=== PATIENT | female | born 1960 | race African-American/Black ===

== ENCOUNTER → 2019-02-23 | Outpatient (CLI) | payer MEDICARE, OTHER ==
[2019-02-23 12:17] LABS: Basophils % (A) 1 %; Eosinophils # (A) 0.2 k/uL (0-0.7); Eosinophils % (A) 3 %; HCT 43.2 % (34.0-46.0); HGB 13.2 gm/dL (11.4-16.0); Hypochromasia Slight; Lymphocytes # (A) 2.2 k/uL (1.0-4.8); Lymphocytes % (A) 37 %; MCH 26.7 pg (25.0-35.0); MCHC 30.7 g/dL (31.0-37.0); MCV 87.1 fL (80.0-100.0); Mean Platelet Volume 7.8; Monocytes # (A) 0.4 k/uL (0-1.0); Monocytes % (A) 6 %; Neutrophils % (A) 51 %; Platelet Count 227 k/uL (150-450); RBC 4.96 m/uL (3.80-5.40); RDW 15.2 % (11.5-15.5)
[2019-02-23 16:05] LABS: Albumin 4.6 g/dL (3.80-4.90); Albumin/Globulin Ratio 2.42 (1.60-3.17); Anion Gap 6.6 mmol/L (4.00-12.00); Calcium 9.8 mg/dL (8.7-10.3); Carbon Dioxide 30.4 mmol/L (21.6-31.8); Globulin 1.9 g/dL (1.6-3.3); LDL Cholesterol,Calculated 103.2 mg/dL (0.0-131.0); Potassium 4.5 mmol/L (3.5-5.5); Total Bilirubin 0.8 mg/dL (0.3-1.2); Total Protein 6.5 g/dL (6.2-8.2); VLDL Calculation 21.8 mg/dL (5.00-40.00)
== END | disposition home or self-care (01) ==
LOC: LABWHC1 11:40
PROVIDERS: ATTEND Internal Medicine
DX: Z00.00 Encounter for general adult medical examination without abnormal findings (principal); E55.9 Vitamin D deficiency, unspecified; E11.9 Type 2 diabetes mellitus without complications; I10 Essential (primary) hypertension; F79 Unspecified intellectual disabilities; R60.0 Localized edema
CPT/HCPCS: 36415; 80053; 80061; 82306; 82607; 84443; 85025

== ENCOUNTER → 2019-03-11 | Outpatient (CLI) | payer MEDICARE, OTHER ==
--- NOTE | 2019-03-11 13:04 | USB ---
Reason for exam: clinical finding. Indicated problem(s): pain in both breasts. Physical Findings: Nurse Summary: all soft, nodular, movable (nurse ts). US Breast BILAT Right complete breast ultrasound includes all four quadrants, the retroareolar region and axilla. Finding demonstrates a 0.5 x 0.3 x 0.5cm cystic lesion at 12 o'clock. Left complete breast ultrasound includes all four quadrants, the retroareolar region and axilla. Finding demonstrates a 0.5 x 0.2 x 0.4cm lesion too small to characterize at 6 o'clock, probable cyst cluster, smaller from 2013 and a 0.8 x 0.5 x 0.6cm calcification at 3 o'clock, likely corresponds to calcifications labeled 6 o'clock near the nipple previously. Special needs patient unable to receive mammograms. These results were verbally communicated with the patient and result sheet given to the patient on 03/11/19. ASSESSMENT: Benign, BI-RAD 2 RECOMMENDATION: Continue annual screening as able. Clinical management of both breasts. Continue monthly self breast exams. Manage on a clinical basis with regard to pain. MTDD
== END | disposition home or self-care (01) ==
LOC: RADUSWWP 09:45
PROVIDERS: ATTEND Internal Medicine
DX: N64.4 Mastodynia (principal)

== ENCOUNTER 2019-10-16 18:46 | Emergency (ER) | payer MEDICARE, OTHER ==
[2019-10-16 18:57] VITALS: BP 117/81; PULSE 98; TEMP 101.1
[2019-10-16] MEDS ORDERED: IBUPROFEN 600 MG TAB PO STA (19:15)
[2019-10-16 19:30] VITALS: RESP 20
--- NOTE | 2019-10-16 20:07 | XR ---
EXAMINATION TYPE: XR chest 2V DATE OF EXAM: 10/16/2019 COMPARISON: NONE HISTORY: Fever TECHNIQUE: 2 views FINDINGS: There is no heart failure nor confluent pneumonic infiltrate. Costophrenic angles are clear . There are no hilar masses. Bony thorax is intact. IMPRESSION: No active cardiopulmonary disease. Normal heart.
[2019-10-16] MEDS ORDERED: cefTRIAXone 1,000 MG VIAL (IM USE) IM STA (20:11)
--- NOTE | 2019-10-16 20:11 | ED ---
Fever HPI - General Chief Complaint: Fever Stated Complaint: fever/sore throat Time Seen by Provider: 10/16/19 19:08 Source: patient, family, RN notes reviewed Mode of arrival: ambulatory Limitations: altered mental status, physical limitation - History of Present Illness Initial Comments: 59-year-old female presents to emergency Department chief complaint of fever cough congestion sore throat. Information is slightly limited by patient's developmental delay. Patient is able to say that she has complaints of cough, sore throat and nasal congestion. Patient has been sick for last 2 days. They noticed that she's been more tired than usual she's had no complaints of abdominal pain, nausea vomiting diarrhea constipation no difficulty swallowing. Patient has not had any recent Tylenol Motrin. They are concerned that she may have influenza as she's been exposed bolus and group sessions. - Related Data Home Medications Medication Instructions Recorded Confirmed Atenolol/Chlorthalidone each PO 02/13/14 02/13/14 [Atenolol-Chlorthalidone 100-25] Bisacodyl [Dulcolax] 5 mg PO 02/13/14 02/13/14 PARoxetine HCL [Paxil] 20 mg PO DAILY 02/13/14 02/13/14 Potassium Chloride [Klor-Con 20] 20 meq PO DAILY 02/13/14 02/13/14 Ranitidine HCl 300 mg PO 02/13/14 02/13/14 Simvastatin [Zocor] 20 mg PO HS 02/13/14 02/13/14 metFORMIN HCL 500 mg PO DAILY 02/13/14 02/13/14 Previous Rx's Medication Instructions Recorded methylPREDNISolone Dose Pack 24 mg PO DAILY #1 tab 02/13/14 [Medrol Dose Pack] Amoxicillin/Potassium Clav 1 tab PO Q12HR #20 tab 10/16/19 [Augmentin 875-125 Tablet] Allergies Allergy/AdvReac Type Severity Reaction Status Date / Time No Known Allergies Allergy Verified 10/16/19 18:57 Review of Systems ROS Statement: Those systems with pertinent positive or pertinent negative responses have been documented in the HPI. ROS Other: All systems not noted in ROS Statement are negative. Past Medical History Past Medical History: Diabetes Mellitus, Hypertension Additional Past Medical History / Comment(s): mentally challenged History of Any Multi-Drug Resistant Organisms: None Reported Past Surgical History: Cholecystectomy Additional Past Surgical History / Comment(s): eye Past Psychological History: No Psychological Hx Reported Smoking Status: Never smoker Past Alcohol Use History: None Reported Past Drug Use History: None Reported General Exam Limitations: altered mental status, physical limitation General appearance: alert, in no apparent distress Head exam: Present: atraumatic, normocephalic, normal inspection Eye exam: Present: normal appearance, PERRL, EOMI. Absent: scleral icterus, conjunctival injection, periorbital swelling ENT exam: Present: mucous membranes moist, TM's normal bilaterally, normal external ear exam. Absent: normal oropharynx (Limited Exam by patient though no obvious abscess, there is notable erythema.) Neck exam: Present: normal inspection, full ROM, lymphadenopathy. Absent: tenderness, meningismus Respiratory exam: Present: normal lung sounds bilaterally. Absent: respiratory distress, wheezes, rales, rhonchi, stridor Cardiovascular Exam: Present: regular rate, normal rhythm, normal heart sounds. Absent: systolic murmur, diastolic murmur, rubs, gallop, clicks GI/Abdominal exam: Present: soft, normal bowel sounds. Absent: distended, tenderness, guarding, rebound, rigid Neurological exam: Present: alert Skin exam: Present: warm, dry, intact, normal color. Absent: rash Course Vital Signs 10/16/19 10/16/19 18:54 19:23 Temperature 101.1 F H Pulse Rate 98 Respiratory 22 20 Rate Blood Pressure 117/81 O2 Sat by Pulse 100 Oximetry Medical Decision Making - Medical Decision Making Patient's influenza negative, x-rays unremarkable. Patient will be treated for suspected strep infection at this time. Patient was placed on antibiotics advised to follow-up with PCP tomorrow return for any change in symptoms. - Lab Data Lab Results 10/16/19 Range/Units 19:21 Influenza Type A RNA Not Detected (Not Detectd) Influenza Type B (PCR) Not Detected (Not Detectd) Disposition Clinical Impression: Acute pharyngitis Disposition: HOME SELF-CARE Condition: Stable Instructions (If sedation given, give patient instructions): Fever in Adults (ED) Additional Instructions: Please return to the Emergency Department if symptoms worsen or any other concerns. Prescriptions: Amoxicillin/Potassium Clav [Augmentin 875-125 Tablet] 1 tab PO Q12HR #20 tab Is patient prescribed a controlled substance at d/c from ED?: No Referrals: Joanna Bernal MD [Primary Care Provider] - 1-2 days Time of Disposition: 20:10
== END 2019-10-16 20:57 | disposition home or self-care (01) ==
LOC: EC 18:46 → EEVIPCON 18:46 → EC 20:57
DX: J02.9 Acute pharyngitis, unspecified (principal); R41.82 Altered mental status, unspecified; R05 Cough; R09.81 Nasal congestion; R53.83 Other fatigue; E11.9 Type 2 diabetes mellitus without complications; I10 Essential (primary) hypertension; Z79.84 Long term (current) use of oral hypoglycemic drugs; Z79.899 Other long term (current) drug therapy
CPT/HCPCS: 87502; 71046; 99283; 96372; J0696

== ENCOUNTER → 2020-12-21 | Outpatient (CLI) | payer MEDICARE, OTHER ==
[2020-12-21 19:58] LABS: Chol/HDL Ratio 4.93
== END | disposition home or self-care (01) ==
LOC: LABWHC1 11:40
PROVIDERS: ATTEND Internal Medicine
DX: Z00.00 Encounter for general adult medical examination without abnormal findings (principal); E78.5 Hyperlipidemia, unspecified
CPT/HCPCS: 36415; 80061

== ENCOUNTER → 2020-12-30 | Outpatient (CLI) | payer MEDICARE, OTHER ==
--- NOTE | 2020-12-31 10:50 | ECHOF ---
Referral Reason:E11.9, R60.0, E78.5, I10 MEASUREMENTS -------- HEIGHT: 160.0 cm WEIGHT: 95.3 kg BP: IVSd: 1.0 cm (0.6 - 1.1) LVIDd: 2.9 cm (3.9 - 5.3) LVPWd: 1.2 cm (0.6 - 1.1) EDV(Teich): 32 ml IVSs: 1.5 cm LVIDs: 1.4 cm LVPWs: 1.3 cm %IVS Thck: 51 % ESV(Teich): 5 ml EF(Teich): 85 % %FS: 53 % SV(Teich): 27 ml IVC: 11.74 mm LALs A4C: 4.5 cm LAAs A4C: 12.6 cm LAESV A-L A4C: 30 ml LAESV MOD A4C: 29 ml LALs A2C: 4.6 cm LAAs A2C: 11.7 cm LAESV A-L A2C: 25 ml LAESV MOD A2C: 24 ml LAESV(A-L): 28 ml LAESV Index (A-L): 14.00 ml/m Ao Diam: 2.5 cm (2.0 - 3.7) LA Diam: 2.8 cm (2.7 - 3.8) EPSS: 1.6 cm MV E Lan: 0.74 m/s MV DecT: 177 ms MV Dec Lea: 4.2 m/s MV A Lan: 0.86 m/s MV E/A Ratio: 0.87 MV PHT: 51 ms MR Vmax: 1.44 m/s MR maxP.29 mmHg AV Vmax: 1.35 m/s AV maxP.32 mmHg TR Vmax: 1.37 m/s TR maxP.51 mmHg RAP: 5.00 mmHg RVSP: 12.51 mmHg MV EF SLOPE: 67.17 mm/s (70 - 150) MV EXCURSION: 12.49 mm (> 18.000) FINDINGS -------- This was a technically good study. The left ventricular size is normal. There is borderline concentric left ventricular hypertrophy. Overall left ventricular systolic function is normal with, an EF between 55 - 60 %. The diastolic filling pattern is normal for the age of the patient 11.61. The right ventricle is normal in size. The left atrial size is normal. Normal LA size by volume 22+/-6 ml/m2. The right atrial size is normal. Interatrial and interventricular septum intact. The aortic valve is trileaflet and appears structurally normal. The mitral valve is normal. There is trace mitral regurgitation. The tricuspid valve appears structurally normal. Trace tricuspid regurgitation present. Right jerald tricular systolic pressure is normal at < 35 mmHg. There is no pulmonic regurgitation present. The aortic root size is normal. Normal inferior vena cava with normal inspiratory collapse consistent with estimated right atrial pre ssure of 5 mmHg. There is no pericardial effusion. CONCLUSIONS -------- 1. The left ventricular size is normal. 2. There is borderline concentric left ventricular hypertrophy. 3. Overall left ventricular systolic function is normal with, an EF between 55 - 60 %. 4. The diastolic filling pattern is normal for the age of the patient 11.61 5. There is trace mitral regurgitation. 6. Trace tricuspid regurgitation present. 7. There is no pericardial effusion. VOCATIONAL NURSING INSTRUCTOR: Shantell Spears RDCS
== END | disposition home or self-care (01) ==
LOC: RADECHMAIN 13:09
PROVIDERS: ATTEND Internal Medicine
DX: I08.1 Rheumatic disorders of both mitral and tricuspid valves (principal); I10 Essential (primary) hypertension
CPT/HCPCS: 93306

== ENCOUNTER 2022-01-24 20:09 | Emergency (ER) | payer MEDICARE, OTHER ==
[2022-01-24 20:23] VITALS: RESP 18; TEMP 98.3
--- NOTE | 2022-01-24 21:11 | ED ---
General Adult HPI - General Chief complaint: Extremity Injury, Upper Stated complaint: Left Shoulder Injury Time Seen by Provider: 01/24/22 20:40 Source: patient, family, RN notes reviewed Mode of arrival: ambulatory Limitations: altered mental status - History of Present Illness Initial comments: Patient is a pleasant 61-year-old female presenting to the emergency Department with left shoulder discomfort. Onset of symptoms was a couple of days ago while being days. No direct trauma. Unclear how this could've started. Patient provides extremely limited history with limited verbal response. 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 No history of similar symptoms previously. Discomfort is greatly increased with attempting to raise arms. - Related Data Home Medications Medication Instructions Recorded Confirmed Atenolol/Chlorthalidone each PO 02/13/14 02/13/14 [Atenolol-Chlorthalidone 100-25] Bisacodyl [Dulcolax] 5 mg PO 02/13/14 02/13/14 PARoxetine HCL [Paxil] 20 mg PO DAILY 02/13/14 02/13/14 Potassium Chloride [Klor-Con 20] 20 meq PO DAILY 02/13/14 02/13/14 Simvastatin [Zocor] 20 mg PO HS 02/13/14 02/13/14 metFORMIN HCL 500 mg PO DAILY 02/13/14 02/13/14 raNITIdine HCL [Ranitidine HCl] 300 mg PO 02/13/14 02/13/14 Previous Rx's Medication Instructions Recorded methylPREDNISolone Dose Pack 24 mg PO DAILY #1 tab 02/13/14 [Medrol Dose Pack] Amoxicillin/Potassium Clav 1 tab PO Q12HR #20 tab 10/16/19 [Augmentin 875-125 Tablet] Ibuprofen [Motrin] 600 mg PO Q6HR PRN #20 tab 01/24/22 Allergies Allergy/AdvReac Type Severity Reaction Status Date / Time No Known Allergies Allergy Verified 10/16/19 18:57 Review of Systems ROS Statement: Those systems with pertinent positive or pertinent negative responses have been documented in the HPI. ROS Other: All systems not noted in ROS Statement are negative. Limitations: ROS unobtainable due to patients medical condition Gastrointestinal: Denies: vomiting Skin: Denies: rash Neurological: Denies: weakness Past Medical History Past Medical History: Diabetes Mellitus, Hypertension Additional Past Medical History / Comment(s): mentally challenged History of Any Multi-Drug Resistant Organisms: None Reported Past Surgical History: Cholecystectomy Additional Past Surgical History / Comment(s): eye Past Psychological History: No Psychological Hx Reported Smoking Status: Never smoker Past Alcohol Use History: None Reported Past Drug Use History: None Reported General Exam Limitations: no limitations General appearance: alert, in no apparent distress Head exam: Present: normocephalic Eye exam: Present: normal appearance Neck exam: Present: normal inspection. Absent: tenderness Respiratory exam: Present: normal lung sounds bilaterally Cardiovascular Exam: Present: regular rate, normal rhythm Expanded Peripheral pulses: 2+: Radial (L) GI/Abdominal exam: Present: soft. Absent: tenderness Extremities exam: Present: tenderness (Minimal tenderness left clavicle region and upper arm). Absent: full ROM (Limited ability to raise left arm secondary to discomfort) Back exam: Present: normal inspection. Absent: tenderness Neurological exam: Present: alert. Absent: motor sensory deficit Expanded Motor strength exam: RUE: 5, LUE: 5 Psychiatric exam: Present: normal affect, normal mood Skin exam: Present: normal color Course Vital Signs 01/24/22 01/24/22 01/24/22 20:21 20:56 21:29 Temperature 98.3 F Pulse Rate 86 73 Respiratory 18 18 Rate Blood Pressure 182/137 187/115 142/91 O2 Sat by Pulse 98 Oximetry - Reevaluation(s) Reevaluation #1: 01/24/22 21:11 Patient reportedly did not take her evening blood pressure medicine. [employer] Exp[employer] Maker Hand is trying to figure out what that medication is 01/24/22 21:19 Patient is supposed to be on metoprolol 25 twice a day over this is reportedly was witnessed. Medical Decision Making - Medical Decision Making Patient reevaluated and resting comfortably in bed. Discomfort appears only to be apparent with movement of the arm. [employer] updated on results and need for follow-up. - Radiology Data Radiology results: image reviewed (Chest x-ray, humerus x-ray, and clavicle x- ray revealed no acute abnormality) Disposition Clinical Impression: Strain of shoulder Disposition: HOME SELF-CARE Condition: Stable Instructions (If sedation given, give patient instructions): Shoulder Sprain (ED) Additional Instructions: Please do follow-up with primary care physician this week. If symptoms continue consider orthopedic follow-up, number provided. Prescription for Motrin 600 has been sent to pharmacy. Return for fever, increased pain, swelling, worsening or change in symptoms or any other concerns. Prescriptions: Ibuprofen [Motrin] 600 mg PO Q6HR PRN #20 tab PRN Reason: Pain Is patient prescribed a controlled substance at d/c from ED?: No Referrals: Joanna Bernal MD [Primary Care Provider] - 1-2 days David Fan MD [Medical Doctor] - 1-2 days Time of Disposition: 22:07
[2022-01-24] MEDS ORDERED: METOPROLOL TARTRATE 25 MG TAB PO STA (21:19)
[2022-01-24 21:29] VITALS: BP 142/91; PULSE 73
--- NOTE | 2022-01-24 21:37 | XR ---
EXAMINATION TYPE: XR clavicle LT DATE OF EXAM: 01/24/2022 9:20 PM INDICATION: Patient age:Female; 61 years old; Reason for study: pain; COMPARISON: Chest radiograph same day TECHNIQUE: AP and cephalic tilt views were obtained of the left clavicle. FINDINGS: No evidence of acute or chronic osseous pathology, joint dislocation or soft tissue swelling. IMPRESSION: No evidence for acute fracture.
--- NOTE | 2022-01-24 21:37 | XR ---
EXAMINATION TYPE: XR humerus LT DATE OF EXAM: 01/24/2022 9:20 PM INDICATION: Patient age:Female; 61 years old; Reason for study: pain; COMPARISON: Radiograph same day TECHNIQUE: The left humerus was examined in AP, internally rotated and axillary projections. FINDINGS: No evidence of acute osseous pathology, joint dislocation, or soft tissue swelling. The rem aining portions of the visualized chest are unremarkable. IMPRESSION: No acute osseous pathology.
--- NOTE | 2022-01-24 21:37 | XR ---
EXAMINATION TYPE: XR chest 2V DATE OF EXAM: 01/24/2022 9:20 PM COMPARISON: Multiple radiographs, with the most recent on 01/24/2022 TECHNIQUE: XR chest 2V Frontal and lateral views of the chest. CLINICAL INDICATION:Female, 61 years old with history of pain; FINDINGS: Lungs/Pleura: There is no evidence of pleural effusion, focal consolidation, or pneumothorax. Pulmonary vascularity: Unremarkable. Heart/mediastinum: Cardiomediastinal silhouette is unremarkable. Musculoskeletal: No acute osseous pathology. IMPRESSION: No acute cardiopulmonary disease/process.
== END 2022-01-24 22:20 | disposition home or self-care (01) ==
LOC: EC 20:09
DX: S46.912A Strain of unspecified muscle, fascia and tendon at shoulder and upper arm level, left arm, initial encounter (principal); I10 Essential (primary) hypertension; E11.9 Type 2 diabetes mellitus without complications; W19.XXXA Unspecified fall, initial encounter
CPT/HCPCS: 71046; 99284

== ENCOUNTER 2022-02-01 21:48 | Emergency (ER) | payer MEDICARE, OTHER ==
--- NOTE | 2022-02-01 23:39 | XR ---
EXAMINATION TYPE: XR chest 2V DATE OF EXAM: 02/01/2022 COMPARISON: 01/24/2022 HISTORY: Short of breath TECHNIQUE: 2 views FINDINGS: Heart is normal. Lungs are clear of infiltrate. No heart failure. There are no hilar masses . Bony thorax is intact. IMPRESSION: No active cardiopulmonary disease. No change.
[2022-02-02] MEDS ORDERED: ACETAMINOPHEN TAB 500 MG TAB PO STA (00:30)
[2022-02-02] MEDS ORDERED: DEXAMETHASONE SOD PHOSPHATE 10 MG/ML 1 ML VIAL IVP STA (00:30)
[2022-02-02] MEDS ORDERED: ALBUTEROL HFA INHALER INHALATION STA (00:30)
[2022-02-02] MEDS ORDERED: KETOROLAC 15 MG/ML 1 ML VIAL IVP STA (00:30)
--- NOTE | 2022-02-02 00:32 | ED ---
Fever HPI - General Chief Complaint: Fever Stated Complaint: Fever,RITIKA,Weakness Time Seen by Provider: 02/02/22 00:21 Source: patient, family, RN notes reviewed, old records reviewed, Caregiver Mode of arrival: wheelchair Limitations: language barrier, altered mental status, physical limitation - History of Present Illness Initial Comments: This is a 61-year-old female who is relatively healthy presented with family today. Family brings patient in urgent of primary care for evaluation regards to fever. Patient is unable to provide history, does not presented history of present illness and she is unable to speak or communicate. She does have elva betes and high blood pressure. No travel history or sick contacts persistent fever but no other complaints MD Complaint: fever, weakness -: days(s) Temperature Source: subjective Context: sick contacts, multiple patients with similar symptoms Associated Symptoms: chills, myalgias Treatments Prior to Arrival: none - Related Data Home Medications Medication Instructions Recorded Confirmed Atenolol/Chlorthalidone each PO 02/13/14 02/13/14 [Atenolol-Chlorthalidone 100-25] Bisacodyl [Dulcolax] 5 mg PO 02/13/14 02/13/14 PARoxetine HCL [Paxil] 20 mg PO DAILY 02/13/14 02/13/14 Potassium Chloride [Klor-Con 20] 20 meq PO DAILY 02/13/14 02/13/14 Simvastatin [Zocor] 20 mg PO HS 02/13/14 02/13/14 metFORMIN HCL 500 mg PO DAILY 02/13/14 02/13/14 raNITIdine HCL [Ranitidine HCl] 300 mg PO 02/13/14 02/13/14 Previous Rx's Medication Instructions Recorded methylPREDNISolone Dose Pack 24 mg PO DAILY #1 tab 02/13/14 [Medrol Dose Pack] Amoxicillin/Potassium Clav 1 tab PO Q12HR #20 tab 10/16/19 [Augmentin 875-125 Tablet] Ibuprofen [Motrin] 600 mg PO Q6HR PRN #20 tab 01/24/22 Allergies Allergy/AdvReac Type Severity Reaction Status Date / Time No Known Allergies Allergy Verified 02/01/22 23:17 Review of Systems ROS Statement: Those systems with pertinent positive or pertinent negative responses have been documented in the HPI. ROS Other: All systems not noted in ROS Statement are negative. Past Medical History Past Medical History: Diabetes Mellitus, Hypertension Additional Past Medical History / Comment(s): mentally challenged, nonverbal History of Any Multi-Drug Resistant Organisms: None Reported Past Surgical History: Cholecystectomy Additional Past Surgical History / Comment(s): eye Past Psychological History: No Psychological Hx Reported Smoking Status: Never smoker Past Alcohol Use History: None Reported Past Drug Use History: None Reported General Exam Limitations: language barrier, altered mental status, physical limitation General appearance: alert, in no apparent distress Head exam: Present: atraumatic, normocephalic, normal inspection Eye exam: Present: normal appearance, PERRL, EOMI. Absent: scleral icterus, conjunctival injection, periorbital swelling ENT exam: Present: normal exam, mucous membranes moist Neck exam: Present: normal inspection. Absent: tenderness, meningismus, lymphadenopathy Respiratory exam: Present: normal lung sounds bilaterally. Absent: respiratory distress, wheezes, rales, rhonchi, stridor Cardiovascular Exam: Present: regular rate, normal rhythm, normal heart sounds. Absent: systolic murmur, diastolic murmur, rubs, gallop, clicks GI/Abdominal exam: Present: soft, normal bowel sounds. Absent: distended, tenderness, guarding, rebound, rigid Extremities exam: Present: normal inspection, full ROM, normal capillary refill. Absent: tenderness, pedal edema, joint swelling, calf tenderness Back exam: Present: normal inspection Neurological exam: Present: alert, oriented X3, CN II-XII intact Psychiatric exam: Present: normal affect, normal mood Skin exam: Present: warm, dry, intact, normal color. Absent: rash Course Vital Signs 02/01/22 02/02/22 02/02/22 23:11 00:27 01:00 Temperature 99.5 F Pulse Rate 76 70 70 Respiratory 18 20 18 Rate Blood Pressure 155/89 154/90 156/89 O2 Sat by Pulse 98 99 98 Oximetry - Reevaluation(s) Reevaluation #1: 02/02/22 00:31 Medical record is reviewed Reevaluation #2: 02/02/22 02:09 Patient showing no acute distress here in the ER Reevaluation #3: 02/02/22 02:09 Family informed of results and questions answered Medical Decision Making - Medical Decision Making 61 female who is nonverbal coming in for coronavirus with fever. Patient's in no distress vital signs are normal and stable x-rays negative lab values are n ormal. Patient can be discharged home she did get anti-bodies here in the ER - Lab Data Result diagrams: 02/02/22 00:51 02/02/22 00:51 Lab Results 02/01/22 02/01/22 02/02/22 Range/Units 23:21 23:21 00:51 WBC 9.7 (3.8-10.6) k/uL RBC 4.85 (3.80-5.40) m/uL Hgb 13.2 (11.4-16.0) gm/dL Hct 43.7 (34.0-46.0) % MCV 90.2 (80.0-100.0) fL MCH 27.2 (25.0-35.0) pg MCHC 30.2 L (31.0-37.0) g/dL RDW 14.2 (11.5-15.5) % Plt Count 229 (150-450) k/uL MPV 8.5 Neutrophils % 60 % Lymphocytes % 22 % Monocytes % 15 % Eosinophils % 0 % Basophils % 0 % Neutrophils # 5.9 (1.3-7.7) k/uL Lymphocytes # 2.1 (1.0-4.8) k/uL Monocytes # 1.4 H (0-1.0) k/uL Eosinophils # 0.0 (0-0.7) k/uL Basophils # 0.0 (0-0.2) k/uL Hypochromasia Slight Sodium (137-145) mmol/L Potassium (3.5-5.1) mmol/L Chloride (98-107) mmol/L Carbon Dioxide (22-30) mmol/L Anion Gap mmol/L BUN (7-17) mg/dL Creatinine (0.52-1.04) mg/dL Est GFR (CKD-EPI)AfAm (>60 ml/min/1.73 sqM) Est GFR (CKD-EPI)NonAf (>60 ml/min/1.73 sqM) Glucose (74-99) mg/dL Calcium (8.4-10.2) mg/dL Phosphorus (2.5-4.5) mg/dL Magnesium (1.6-2.3) mg/dL Total Bilirubin (0.2-1.3) mg/dL AST (14-36) U/L ALT (4-34) U/L Alkaline Phosphatase (38-126) U/L C-Reactive Protein (<1.0) mg/dL Total Protein (6.3-8.2) g/dL Albumin (3.5-5.0) g/dL Coronavirus (PCR) Detected A (Not Detectd) Influenza Type A RNA Not Detected (Not Detectd) Influenza Type B (PCR) Not Detected (Not Detectd) 02/02/22 Range/Units 00:51 WBC (3.8-10.6) k/uL RBC (3.80-5.40) m/uL Hgb (11.4-16.0) gm/dL Hct (34.0-46.0) % MCV (80.0-100.0) fL MCH (25.0-35.0) pg MCHC (31.0-37.0) g/dL RDW (11.5-15.5) % Plt Count (150-450) k/uL MPV Neutrophils % % Lymphocytes % % Monocytes % % Eosinophils % % Basophils % % Neutrophils # (1.3-7.7) k/uL Lymphocytes # (1.0-4.8) k/uL Monocytes # (0-1.0) k/uL Eosinophils # (0-0.7) k/uL Basophils # (0-0.2) k/uL Hypochromasia Sodium 140 (137-145) mmol/L Potassium 4.4 (3.5-5.1) mmol/L Chloride 102 (98-107) mmol/L Carbon Dioxide 29 (22-30) mmol/L Anion Gap 9 mmol/L BUN 21 H (7-17) mg/dL Creatinine 0.92 (0.52-1.04) mg/dL Est GFR (CKD-EPI)AfAm 78 (>60 ml/min/1.73 sqM) Est GFR (CKD-EPI)NonAf 68 (>60 ml/min/1.73 sqM) Glucose 120 H (74-99) mg/dL Calcium 9.1 (8.4-10.2) mg/dL Phosphorus 4.2 (2.5-4.5) mg/dL Magnesium 2.1 (1.6-2.3) mg/dL Total Bilirubin 0.7 (0.2-1.3) mg/dL AST 23 (14-36) U/L ALT 18 (4-34) U/L Alkaline Phosphatase 96 (38-126) U/L C-Reactive Protein 3.6 H (<1.0) mg/dL Total Protein 7.3 (6.3-8.2) g/dL Albumin 4.4 (3.5-5.0) g/dL Coronavirus (PCR) (Not Detectd) Influenza Type A RNA (Not Detectd) Influenza Type B (PCR) (Not Detectd) - Radiology Data Radiology results: report reviewed (Chest x-rays negative for acute disease), image reviewed Disposition Clinical Impression: Coronavirus infection, Fever Disposition: HOME SELF-CARE Condition: Good Instructions (If sedation given, give patient instructions): Fever in Adults (ED), Coronavirus Disease 2019 (COVID-19) Is patient prescribed a controlled substance at d/c from ED?: No Referrals: Joanna Bernal MD [Primary Care Provider] - 1-2 days
[2022-02-02 01:07] LABS: Basophils % (A) 0 %; Eosinophils % (A) 0 %; HCT 43.7 % (34.0-46.0); HGB 13.2 gm/dL (11.4-16.0); Hypochromasia Slight; Lymphocytes # (A) 2.1 k/uL (1.0-4.8); Lymphocytes % (A) 22 %; MCH 27.2 pg (25.0-35.0); MCHC 30.2 g/dL (31.0-37.0); MCV 90.2 fL (80.0-100.0); Mean Platelet Volume 8.5; Monocytes # (A) 1.4 k/uL (0-1.0); Monocytes % (A) 15 %; Neutrophils # (A) 5.9 k/uL (1.3-7.7); Neutrophils % (A) 60 %; Platelet Count 229 k/uL (150-450); RBC 4.85 m/uL (3.80-5.40); RDW 14.2 % (11.5-15.5); WBC 9.7 k/uL (3.8-10.6)
[2022-02-02 01:13] LABS: Albumin 4.4 g/dL (3.5-5.0); C Reactive Protein 3.6 mg/dL (<1.0); Calcium 9.1 mg/dL (8.4-10.2); Magnesium 2.1 mg/dL (1.6-2.3); Phosphorus 4.2 mg/dL (2.5-4.5); Potassium 4.4 mmol/L (3.5-5.1); Total Bilirubin 0.7 mg/dL (0.2-1.3); Total Protein 7.3 g/dL (6.3-8.2)
[2022-02-02] MEDS ORDERED: BEBTELOVIMAB (EUA) 175 MG/2 ML VIAL IV ONE (01:30)
[2022-02-02 01:36] VITALS: RESP 18
[2022-02-02 02:37] VITALS: BP 134/76; PULSE 68; TEMP 98.5
== END 2022-02-02 03:21 | disposition home or self-care (01) ==
LOC: EC 21:48
DX: B34.2 Coronavirus infection, unspecified (principal); I10 Essential (primary) hypertension; E11.9 Type 2 diabetes mellitus without complications
CPT/HCPCS: 36415; 71046; 80053; 83735; 84100; 85025; 86140; 87502; 87635; 96374; 96375; 99285

== ENCOUNTER → 2023-02-10 | Outpatient (CLI) | payer MEDICARE, OTHER ==
[2023-02-11 05:48] LABS: Appearance,Urine Turbid (Clear); Bacteria,Urine 3+ /HPF (None Seen); Bilirubin,Urine Negative (Negative); Blood,Urine Negative (Negative); Color,Urine Yellow (Yellow); Ketones,Urine Trace mg/dL (Negative); Nitrite,Urine Negative (Negative); PH, Urine 5.5 (5.0-8.0); Specific Gravity,Urine 1.034 (1.001-1.030)
== END | disposition home or self-care (01) ==
LOC: LABWHC1 15:20
PROVIDERS: ATTEND Internal Medicine
DX: N39.0 Urinary tract infection, site not specified (principal)
CPT/HCPCS: 81001; 87086

== ENCOUNTER → 2023-09-20 | Outpatient (CLI) | payer MEDICARE, OTHER ==
--- NOTE | 2023-09-21 10:11 | CA ---
Transthoracic Echo Report Name: Queen Ruiz Age: 62 Gender: F : 1960 Exam Date: 09/20/2023 14:16 Exam Location: [place] [facility] Ht (in): 63 Wt (lb): 210 Ordering Physician: Joanna Bernal MD Attending/Referring Phys: Prom Burn Off Operator Karen Morrow [facility] Procedure CPT: Indications: R01.1 CARDIAC MURMUR; R60.0 Edema Cardiac Hx: Technical Quality: Fair Contrast 1: Total Dose (mL): Contrast 2: Total Dose (mL): MEASUREMENTS (Male / Female) Normal Values 2D ECHO LV Diastolic Diameter PLAX 3.3 cm 4.2 - 5.9 / 3.9 - 5.3 cm LV Systolic Diameter PLAX 2.5 cm IVS Diastolic Thickness 1.2 cm 0.6 - 1.0 / 0.6 - 0.9 cm LVPW Diastolic Thickness 1.1 cm 0.6 - 1.0 / 0.6 - 0.9 cm LV Relative Wall Thickness 0.7 LVOT Diameter 2.0 cm M-MODE Aortic Root Diameter MM 2.4 cm LA Systolic Diameter MM 2.6 cm LA Ao Ratio MM 1.1 AV Cusp Separation MM 1.7 cm DOPPLER AV Peak Velocity 111.1 cm/s AV Peak Gradient 4.9 mmHg AV Mean Velocity 82.3 cm/s AV Mean Gradient 3.0 mmHg AV Velocity Time Integral 23.5 cm LVOT Peak Velocity 111.8 cm/s LVOT Peak Gradient 5.0 mmHg LVOT Velocity Time Integral 23.7 cm LVOT Stroke Volume 71.9 cm??? LVOT Stroke Volume Index 36.4 ml/m??? LVOT Cardiac Index 2051.7 cm???/min???m??? AV Area Cont Eq vti 3.1 cm??? AV Area Cont Eq pk 3.1 cm??? Mitral E Point Velocity 61.9 cm/s Mitral A Point Velocity 76.2 cm/s Mitral E to A Ratio 0.8 MV Deceleration Time 223.6 ms LV E' Lateral Velocity 7.2 cm/s Mitral E to LV E' Lateral Ratio 8.6 LV E' Septal Velocity 7.0 cm/s Mitral E to LV E' Septal Ratio 8.8 TR Peak Velocity 205.2 cm/s TR Peak Gradient 16.8 mmHg Right Atrial Pressure 3.0 mmHg Pulmonary Artery Systolic Pressu 19.8 mmHg Right Ventricular Systolic Press 19.8 mmHg FINDINGS Left Ventricle Mildly increased left ventricular wall thickness. Small left ventricular cavity. Low normal left ventricular systolic function with no obvious regional wall motion abnormalities. Left ventricular ejection fraction is estimated at 50-55%. Right Ventricle Normal right ventricular size. Right Atrium Normal right atrial size. Left Atrium Normal left atrial size. Mitral Valve Structurally normal mitral valve. Trace mitral regurgitation. Aortic Valve Trileaflet aortic valve. No aortic valve stenosis or regurgitation. Tricuspid Valve Structurally normal tricuspid valve. Trace tricuspid regurgitation. Pulmonic Valve Pulmonic valve not well visualized. Pericardium No pericardial effusion. Aorta Normal size aortic root and proximal ascending aorta. CONCLUSIONS Left ventricular ejection fraction 50-55% Trace mitral regurgitation Trace tricuspid regurgitation No pericardial effusion Previewed by: Dr. Tonny Schaffer DO (Electronically Signed) Final Date: 21 September 2023 10:10
== END | disposition home or self-care (01) ==
LOC: RADECHMAIN 13:40
PROVIDERS: ATTEND Internal Medicine
DX: I08.1 Rheumatic disorders of both mitral and tricuspid valves (principal); R01.1 Cardiac murmur, unspecified; R60.0 Localized edema
CPT/HCPCS: 93306

== ENCOUNTER → 2024-01-19 | Outpatient (CLI) | payer MEDICARE, OTHER ==
[2024-01-19 15:49] LABS: Chol/HDL Ratio 2.31 Ratio; LDL Cholesterol,Calculated 84.9 mg/dL (0.0-131.0)
== END | disposition home or self-care (01) ==
LOC: LABWHC1 09:01
PROVIDERS: ATTEND Internal Medicine
DX: E78.5 Hyperlipidemia, unspecified (principal)
CPT/HCPCS: 36415; 80061

== ENCOUNTER → 2024-02-22 | Outpatient (CLI) | payer MEDICARE, OTHER ==
--- NOTE | 2024-02-22 15:54 | US ---
EXAMINATION TYPE: US venous doppler duplex LE DATE OF EXAM: 02/22/2024 3:37 PM COMPARISON: US 2011 CLINICAL INDICATION: Female, 63 years old with history of R60.0 localized edema (legs); Left leg swel ling SIDE PERFORMED: Bilateral TECHNIQUE: The lower extremity deep venous system is examined utilizing real time linear array sonog finn with graded compression, doppler sonography and color-flow sonography. VESSELS IMAGED: Common Femoral Vein Deep Femoral Vein Greater Saphenous Vein * Femoral Vein Popliteal Vein Small Saphenous Vein * Proximal Calf Veins (* superficial vessels) Right Leg: Appears negative for DVT Left Leg: Appears negative for DVT IMPRESSION: 1. Bilateral lower extremity ultrasound negative for deep venous thrombosis.
--- NOTE | 2024-02-22 22:44 | XR ---
EXAMINATION TYPE: XR chest 2V DATE OF EXAM: 02/22/2024 COMPARISON: 02/01/2022 INDICATION: Leg swelling TECHNIQUE: Frontal and lateral views of the chest are obtained. FINDINGS: The heart size is normal. The pulmonary vasculature is normal. The lungs are clear. IMPRESSION: 1. No acute pulmonary process.
== END | disposition home or self-care (01) ==
LOC: RADUSWWP 15:07
PROVIDERS: ATTEND Internal Medicine
DX: R60.0 Localized edema (principal); R06.02 Shortness of breath
CPT/HCPCS: 71046; 93970

== ENCOUNTER → 2024-03-14 | Outpatient (CLI) | payer MEDICARE, OTHER ==
--- NOTE | 2024-03-15 11:44 | CA ---
Transthoracic Echo Report Name: Queen Ruiz Age: 63 Gender: F : 1960 Exam Date: 03/14/2024 15:49 Exam Location: [place] [facility] Ht (in): 64 Wt (lb): 210 Ordering Physician: Joanna Bernal MD Attending/Referring Phys: Shake Out Worker Kalie Sauer RDCS Procedure CPT: Indications: R60.0 LOCALIZED EDEMA (legs) Cardiac Hx: Technical Quality: Contrast 1: Total Dose (mL): Contrast 2: Total Dose (mL): MEASUREMENTS (Male / Female) Normal Values 2D ECHO LV Diastolic Diameter PLAX 3.5 cm 4.2 - 5.9 / 3.9 - 5.3 cm LV Systolic Diameter PLAX 2.2 cm IVS Diastolic Thickness 1.1 cm 0.6 - 1.0 / 0.6 - 0.9 cm LVPW Diastolic Thickness 1.0 cm 0.6 - 1.0 / 0.6 - 0.9 cm LV Relative Wall Thickness 0.6 RV Internal Dim ED PLAX 2.7 cm LA Systolic Diameter LX 2.9 cm 3.0 - 4.0 / 2.7 - 3.8 cm LV Diastolic Volume MOD 4C 60.8 cm??? LV Systolic Volume MOD 4C 25.4 cm??? LV Ejection Fraction MOD 4C 58.2 % LV Diastolic Length 4C 6.9 cm LV Systolic Length 4C 5.6 cm LV Diastolic Volume MOD 2C 47.8 cm??? LV Systolic Volume MOD 2C 21.9 cm??? LV Ejection Fraction MOD 2C 54.3 % LV Diastolic Length 2C 6.5 cm LV Systolic Length 2C 5.4 cm M-MODE Aortic Root Diameter MM 2.5 cm LA Systolic Diameter MM 1.7 cm LA Ao Ratio MM 0.7 DOPPLER AV Peak Velocity 153.4 cm/s AV Peak Gradient 9.4 mmHg Mitral E Point Velocity 92.8 cm/s Mitral A Point Velocity 108.5 cm/s Mitral E to A Ratio 0.9 MV Deceleration Time 212.5 ms MV E' Velocity 7.9 cm/s Mitral E to MV E' Ratio 11.8 FINDINGS Left Ventricle Left ventricular ejection fraction is estimated at 65-70%. Small left ventricular cavity. Mildly increased septal wall thickness. Mildly increased posterior wall thickness. Normal left ventricular wall motion. Right Ventricle Normal right ventricular size and function. Unable to estimate the right ventricular systolic pressure. Right Atrium Normal right atrial size. No right atrial thrombus or mass seen. Left Atrium Normal left atrial size. No left atrial thrombus or mass present. Mitral Valve Structurally normal mitral valve. No mitral stenosis, regurgitation or prolapse. Aortic Valve Trileaflet aortic valve. No aortic valve stenosis or regurgitation. Tricuspid Valve Structurally normal tricuspid valve. No tricuspid stenosis, regurgitation or prolapse. Pulmonic Valve Structurally normal pulmonic valve. No pulmonic regurgitation. Pericardium No pericardial effusion. Aorta Normal size aortic root and proximal ascending aorta. CONCLUSIONS Hyperdynamic LV with EF between 65 to 70% Previewed by: Dr. Jameel Crenshaw MD (Electronically Signed) Final Date: 15 March 2024 11:44
== END | disposition home or self-care (01) ==
LOC: RADECHMAIN 15:42
PROVIDERS: ATTEND Internal Medicine
DX: R60.0 Localized edema (principal)
CPT/HCPCS: 93306

== ENCOUNTER 2024-03-19 11:51 | Day surgery (SDC) | payer MEDICARE, OTHER ==
[2024-03-18 11:14] VITALS: BMI 32.1
[~2024-03-19 11:51] MED LIST: LIDOCAINE 1% (10MG/ML) FOR IV START INTRADERMA PRN
[2024-03-19] MEDS: IV FLUID CONTINUATION 1,000 ML IV ONE (12:29)
[2024-03-19 12:37] VITALS: TEMP 97.7
[2024-03-19 12:46] LABS: Glucose,Whole Blood 111 mg/dL (70-110)
[2024-03-19] MEDS: HYDROCORTISONE SUCCINATE 100 MG/2 ML VIAL IV STA (12:48)
[2024-03-19] MEDS: LACTATED RINGERS 1,000 ML IV SCH (12:49)
[2024-03-19] MEDS ORDERED: PROPOFOL 10 MG/ML 20 ML VIAL IV ONE (12:53)
--- NOTE | 2024-03-19 13:06 | P.GSHP ---
History of Present Illness H&P Date: 03/19/24 Chief Complaint: Rectal bleeding 63-year-old female here for colonoscopy. She has not had one previously that I am aware of. She is learning disabled. History obtained from the chart. Patient with some recent rectal bleeding. Past Medical History Past Medical History: Diabetes Mellitus, GERD/Reflux, Hyperlipidemia, Hypertension Additional Past Medical History / Comment(s): Vaginal bleeding recently. Men tally challenged, nonverbal. Swelling in ankles. History of Any Multi-Drug Resistant Organisms: None Reported Past Surgical History: Cholecystectomy Additional Past Surgical History / Comment(s): Eye surgery. Past Anesthesia/Blood Transfusion Reactions: No Reported Reaction Smoking Status: Never smoker - Past Family History Mother Family Medical History: No Reported History Medications and Allergies Home Medications Medication Instructions Recorded Confirmed Type Atenolol/Chlorthalidone each PO 02/13/14 02/13/14 History [Atenolol-Chlorthalidone 100-25] Bisacodyl [Dulcolax] 5 mg PO 02/13/14 02/13/14 History PARoxetine HCL [Paxil] 20 mg PO DAILY 02/13/14 02/13/14 History Potassium Chloride [Klor-Con 20] 20 meq PO DAILY 02/13/14 02/13/14 History Simvastatin [Zocor] 20 mg PO HS 02/13/14 02/13/14 History metFORMIN HCL 500 mg PO DAILY 02/13/14 02/13/14 History methylPREDNISolone Dose Pack 24 mg PO DAILY #1 tab 02/13/14 Rx [Medrol Dose Pack] raNITIdine HCL [Ranitidine HCl] 300 mg PO 02/13/14 02/13/14 History Amoxicillin/Potassium Clav 1 tab PO Q12HR #20 tab 10/16/19 Rx [Augmentin 875-125 Tablet] Ibuprofen [Motrin] 600 mg PO Q6HR PRN #20 tab 01/24/22 Rx Allergies Allergy/AdvReac Type Severity Reaction Status Date / Time No Known Allergies Allergy Verified 03/18/24 11:19 Surgical - Exam Vital Signs Temp Pulse Resp BP Pulse Ox 97.7 F 85 16 183/80 99 03/19/24 12:34 03/19/24 12:34 03/19/24 12:34 03/19/24 12:34 03/19/24 12:34 Physical exam: General: Well-developed, well-nourished HEENT: Normocephalic, sclerae nonicteric Abdomen: Nontender, nondistended Extremities: No edema Neuro: Alert and oriented Results - Labs Abnormal Lab Results - Last 24 Hours (Table) 03/19/24 Range/Units 12:44 POC Glucose (mg/dL) 111 H (70-110) mg/dL Assessment and Plan (1) Rectal bleeding Narrative/Plan: Will proceed with colonoscopy at this time. Current Visit: Yes Status: Acute Code(s): K62.5 - HEMORRHAGE OF ANUS AND RECTUM SNOMED Code(s): 97895876
--- NOTE | 2024-03-19 13:16 | P.PCN ---
Date of Procedure: 03/19/24 Procedure(s) Performed: PREOPERATIVE DIAGNOSIS: Rectal bleeding POSTOPERATIVE DIAGNOSIS: Normal exam PROCEDURE: Colonoscopy ANESTHESIA: MAC SURGEON: Christo Man M.D. SPECIMENS: None ENDOSCOPIC PROCEDURE: The patient was placed on the endoscopy table in the left decubitus position. The Olympus colonoscope was inserted into the anus and passed under direct visualization to the base of the cecum. The appendiceal orifice was visualized. From that point the scope was slowly withdrawn inspecting all surfaces carefully. There were no neoplastic inflammatory or polypoid lesions throughout the cecum, ascending, transverse, descending, sigmoid and rectum. There was no visible diverticulosis noted. The patient's prep was slightly suboptimal. Digital rectal examination was normal. The patient was taken to the recovery room in stable condition per anesthesia guidelines. RECOMMENDATIONS: Resume diet. Follow-up colonoscopy 10 years.
[2024-03-19 13:49] VITALS: BP 117/79; PULSE 82; RESP 16
== END 2024-03-19 14:04 | disposition home or self-care (01) ==
LOC: ORWHC2ENDO 11:51
PROVIDERS: ATTEND Surgery
DX: K62.5 Hemorrhage of anus and rectum (principal); E11.69 Type 2 diabetes mellitus with other specified complication; E78.5 Hyperlipidemia, unspecified; I10 Essential (primary) hypertension; K21.9 Gastro-esophageal reflux disease without esophagitis; F32.A Depression, unspecified; Z79.84 Long term (current) use of oral hypoglycemic drugs; Z79.899 Other long term (current) drug therapy
CPT/HCPCS: 45378; J1720; J2704

== ENCOUNTER 2024-04-26 08:15 | Day surgery (SDC) | payer MEDICARE, OTHER ==
--- NOTE | 2024-04-25 19:57 | HP ---
HISTORY AND PHYSICAL DATE OF SCHEDULED SURGERY: April 26, 2024. HISTORY OF PRESENT ILLNESS: The patient is a 63-year-old 0, para 0, who presents to the office with concerns for bleeding of uncertain origin over the course of the last month. She has significant mental delay and lives with her sister who is her primary caregiver. She had colonoscopy scheduled for the end of February and I have not received results for this. She does by history have a history of frequent urinary tract infections. She has been menopausal for possibly as many as 20 years per her family's history. She has never used hormone replacement and she has never been sexually active to anyone's knowledge. She is diabetic. PAST MEDICAL HISTORY: Significant for diabetes, hypertension, and a history of gallstones. PAST SURGICAL HISTORY: Significant only for laparoscopic cholecystectomy. OBSTETRICAL HISTORY: 0, para 0. GYNECOLOGIC HISTORY: Unremarkable except as noted in history of present illness. Again, the patient is unable to provide her own history. FAMILY HISTORY: Noncontributory. SOCIAL HISTORY: The patient is single and disabled with mental delay as noted above. She is a nonsmoker and has no alcohol intake nor any other social concerns. REVIEW OF SYSTEMS: Confined to history of present illness. PHYSICAL EXAMINATION: VITAL SIGNS: Stable. The patient is afebrile. GENERAL: This is a well-developed, well-nourished, female, in no acute distress. HEART: Has a regular rhythm and rate without murmur. LUNGS: Clear to auscultation bilaterally in all contreras. ABDOMEN: Nondistended, soft, nontender, without any palpable masses, hepatosplenomegaly, or hernias. EXTREMITIES: Without any cyanosis, clubbing, or edema and are nontender to palpation bilaterally. PELVIC: Deferred to the operating room as the patient will not tolerate an in-office exam. ASSESSMENT AND PLAN: 1. Possible postmenopausal bleeding, bleeding of undetermined origin. As the patient will not tolerate exam or transvaginal ultrasound, we will plan for exam under anesthesia and while there, perform diagnostic hysteroscopy with D and C. The risks and complications have been thoroughly discussed with the patient and her sister who is the legal guardian. These specifically include the risk for bleeding, bleeding requiring transfusion, infection, injury to local structures to specifically include uterine perforation. The information was clearly understood by her sister, the guardian, who has agreed to proceed. We are scheduled for the procedure on April 26 as noted above. MMODL / IJN: [id number] /
[~2024-04-26 08:15] MED LIST changes: +HYDROmorphone 0.5 MG/0.5 ML SYRINGE IVP PRN; +LACTATED RINGERS 1,000 ML IV SCH; +Pre Op ABX Message 1 EACH MISC MISCELLANE ONE; +droPERidol 5 MG/2 ML VIAL IVP ONE
[2024-04-26] MEDS: IV FLUID CONTINUATION 1,000 ML IV ONE (08:38)
[2024-04-26 08:54] VITALS: TEMP 97.1
[2024-04-26 09:23] LABS: Glucose,Whole Blood 117 mg/dL (70-110)
[2024-04-26] MEDS: DEXAMETHASONE SOD PHOSPHATE 4 MG/ML 1 ML VIAL IV ONE (09:26)
[2024-04-26] MEDS: ONDANSETRON 4 MG/2 ML VIAL IVP ONE (09:26)
[2024-04-26] MEDS ORDERED: KETOROLAC 30 MG/ML 1 ML VIAL ONE (09:51)
[2024-04-26] MEDS ORDERED: PROPOFOL 10 MG/ML 20 ML VIAL IV ONE (09:51)
[2024-04-26] MEDS ORDERED: MIDAZOLAM 2 MG/2 ML VIAL ONE (09:51)
[2024-04-26] MEDS ORDERED: fentaNYL (PF) 50 MCG/ML 2 ML AMP ONE (09:51)
[2024-04-26] MEDS ORDERED: diphenhydrAMINE 50 MG/ML 1 ML VIAL IVP PRN (10:20)
[2024-04-26] MEDS ORDERED: ONDANSETRON 4 MG/2 ML VIAL IVP PRN (10:20)
[2024-04-26] MEDS ORDERED: METOCLOPRAMIDE 5 MG/ML 2 ML VIAL IVP PRN (10:20)
[2024-04-26] MEDS ORDERED: SIMETHICONE 80 MG CHEWABLE PO PRN (10:20)
[2024-04-26] MEDS ORDERED: KETOROLAC 15 MG/ML 1 ML VIAL IVP PRN (10:20)
[2024-04-26] MEDS ORDERED: IBUPROFEN 600 MG TAB PO PRN (10:20)
[2024-04-26] MEDS ORDERED: LACTATED RINGERS 1,000 ML IV SCH (10:30)
[2024-04-26 11:04] VITALS: RESP 16
[2024-04-26 11:12] LABS: Glucose,Whole Blood 131 mg/dL (70-110)
[2024-04-26 11:42] VITALS: BP 133/70; PULSE 63
[2024-04-27] MEDS ORDERED: ACETAMINOPHEN TAB 325 MG TAB PO PRN (10:21)
--- NOTE | 2024-06-07 09:39 | P.OP ---
Date of Procedure: 04/26/24 Preoperative Diagnosis: #1. Possible postmenopausal bleeding #2. Inability to examine in the office Postoperative Diagnosis: Same Procedure(s) Performed: 1. Exam under anesthesia #2. Dilation and curettage Anesthesia: SNEHA Surgeon: Kali Atwood Estimated Blood Loss (ml): 5 Pathology: other (Endometrial curettings) Condition: stable Disposition: PACU Operative Findings: Patient demonstrated a virginal introitus with a normal cervix. The uterus is atrophic in size, midplane, mobile and normal in shape. The adnexa were nonpalpable without any apparent masses bilaterally. Small amount of tissue was removed with curettage. Description of Procedure: Patient was prepped and draped in usual fashion after general endotracheal anesthesia was administered by the anesthesiologist. The vagina was too small to use a weighted speculum and a small right angle retractor was utilized to visualize the cervix which was grasped with a single-tooth tenaculum. Uterus was sounded and then dilated to admit a small sharp curette. Thorough and circumferential curettage was carried out onto a Telfa placed in the vagina. A small amount of tissue was returned with a possible polypoid structure noted. After adequate curettage was carried out, all instrumentation was removed. There was no ongoing bleeding from either the cervix or the tenaculum site. Estimated blood loss for the case was 5 mL or less. There were no complications. All sponge, instrument, and needle counts were correct. The patient tolerated the procedure well and proceeded to the recovery room in stable condition.
== END 2024-04-26 11:54 | disposition home or self-care (01) ==
LOC: OR 08:15
PROVIDERS: ATTEND Obstetrics & Gynecology
DX: N84.0 Polyp of corpus uteri (principal); N95.0 Postmenopausal bleeding; E11.9 Type 2 diabetes mellitus without complications; I10 Essential (primary) hypertension; F41.9 Anxiety disorder, unspecified; K21.9 Gastro-esophageal reflux disease without esophagitis; Z79.84 Long term (current) use of oral hypoglycemic drugs; Z79.899 Other long term (current) drug therapy
CPT/HCPCS: 58120; J2250; J1100; J2405; J3010; J1885; J2704